=== PATIENT | female | born 1945 | race Caucasian/White ===

== ENCOUNTER → 2021-06-07 | Outpatient (CLI) | payer OTHER ==
[~2021-06-07] MED LIST: ADVAIR 500-501 EACH INH; ARICEPT10 MG PO; CELEBREX 200MG200 MG PO; CLARITIN10 MG PO; EFFER-K 10 MEQ10 MEQ PO; FLONASE 0.05% N16 GM; LAMOTRIGINE200 MG PO; LEVAQUIN750 MG PO; NORCO 10-325 T1 EACH PO; REQUIP0.25 MG PO; SINGULAIR10 MG PO; SYNTHROID 50 M50 MCG PO; TRAZODONE HCL100 MG PO; XANAX1 MG PO; ZOLOFT50 MG PO
== END ==
LOC: EXRD 11:06
DX: J84.89 Other specified interstitial pulmonary diseases (principal); J30.9 Allergic rhinitis, unspecified; F41.9 Anxiety disorder, unspecified; M19.90 Unspecified osteoarthritis, unspecified site; M62.559 Muscle wasting and atrophy, not elsewhere classified, unspecified thigh
CPT/HCPCS: 71046